=== PATIENT | female | born 1970 | race Caucasian/White ===

== ENCOUNTER 2023-09-19 10:29 | Emergency (ER) | payer OTHER ==
[~2023-09-19] VITALS: Ht 170.2 cm; Wt 117.5 kg
[2023-09-19 10:41] VITALS: BP 185/105; PULSE 79; RESP 18; TEMP 97.3; O2SAT 97
[2023-09-19] MEDS ORDERED: ATEN50TA8 PO (11:05)
[2023-09-19 11:17] VITALS: BP 168/97; PULSE 71; RESP 16; TEMP 98; O2SAT 99
== END 2023-09-19 11:17 | disposition home or self-care (01) ==
LOC: MED 10:29
DX: I10 Essential (primary) hypertension (principal); E03.9 Hypothyroidism, unspecified; Z90.49 Acquired absence of other specified parts of digestive tract
CPT/HCPCS: 99283